=== PATIENT | female | born 1975 | race Two or more races ===

== ENCOUNTER 2021-10-03 08:15 | Inpatient (IN) | payer OTHER ==
[~2021-10-03] VITALS: Ht 162.6 cm; Wt 69.9 kg
[2021-10-03] MEDS ORDERED: TENORMIN25 MG (09:41)
[2021-10-09] MEDS ORDERED: ZOFRAN8 MG PO (12:29)
[2021-10-09] MEDS ORDERED: SIMETHICONE80 MG PO (12:29)
[2021-10-09] MEDS ORDERED: PERCOCET 5-3251 EACH PO (12:29)
[2021-10-09] MEDS ORDERED: COLACE100 MG PO (12:29)
[2021-10-09] MEDS ORDERED: IBU800 MG PO (12:29)
== END 2021-10-09 13:23 | disposition home or self-care (01) | DRG 743 ==
LOC: SURH 10-06 08:15 → O/R 10-06 10:40 → SURG 10-07 17:16
PROVIDERS: ADMIT Obstetrics & Gynecology; ATTEND Obstetrics & Gynecology
PROC: 0TJB8ZZ Inspection of Bladder, Via Natural or Artificial Opening Endoscopic (ICD-10-PCS; 2021-10-06)
PROC: 0UT90ZZ Resection of Uterus, Open Approach (ICD-10-PCS; principal; 2021-10-06 09:30)
DX: D25.1 Intramural leiomyoma of uterus (principal); N92.0 Excessive and frequent menstruation with regular cycle; I10 Essential (primary) hypertension